=== PATIENT | female | born 1970 | race American Indian/Alaskan Native ===

== ENCOUNTER 2019-03-18 12:08 | Emergency (ER) | payer SELFPAY ==
[2019-03-18 12:16] VITALS: BP 162/81
--- NOTE | 2019-03-18 12:19 | Event Note ---
ED Screening Note Date of service: 03/18/19 Time: 12:18 ED Screening Note: 48 y o female presents with knee pain s/p fall last night This initial assessment/diagnostic orders/clinical plan/treatment(s) is/are subject to change based on patients health status, clinical progression and re-assessment by fellow clinical providers in the ED. Further treatment and workup at subsequent clinical providers discretion. Patient/guardian urged not to elope from the ED as their condition may be serious if not clinically assessed and managed. Initial orders include: xr right knee
--- NOTE | 2019-03-18 13:01 | XRay Report ---
RIGHT KNEE 3 VIEWS INDICATION / CLINICAL INFORMATION: knee pain following a fall yesterday. COMPARISON: None available. FINDINGS: No significant skeletal abnormality. Signer Name: Joseph Trevino MD [facility] Signed: 03/18/2019 12:57 PM Workstation Name: [id number]
--- NOTE | 2019-03-18 14:14 | Emergency Department Report ---
ED Lower Extremity HPI - General Chief Complaint: Fall Stated Complaint: RT LEG SWOLLEN/PRESSURE/PAIN Time Seen by Provider: 03/18/19 12:17 Source: patient, family Mode of arrival: Ambulatory Limitations: Physical Limitation - History of Present Illness Initial Comments: Since a 48-year-old -[place]ammar[place] male who presents to the emergency room with right knee pain status post fall yesterday. Patient states she slipped on water while at work yesterday landing on her buttock. Patient states when she failed her right knee hyperflexed. She reports pain is worse with weightbearing and movement. She reports some swelling. Patient states she is ambulating with her sisters walker for assistance. Patient denies hitting her head, loss of consciousness, bruising, paresthesia, weakness, numbness or tingling. MD Complaint: knee injury (right) Onset/Timin -: days(s) Injury: Knee: Right - Related Data Previous Rx's Medication Instructions Recorded Last Taken Type traMADol [Ultram 50 MG tab] 50 mg PO Q6HR PRN #12 tablet 03/18/19 Unknown Rx ED Review of Systems ROS: Stated complaint: RT LEG SWOLLEN/PRESSURE/PAIN Other details as noted in HPI Constitutional: denies: chills, fever Respiratory: denies: cough, shortness of breath, wheezing Cardiovascular: denies: chest pain, palpitations Gastrointestinal: denies: abdominal pain, nausea, diarrhea Musculoskeletal: arthralgia (right knee pain). denies: back pain, joint swel ling Skin: denies: rash, lesions Neurological: denies: headache, weakness, paresthesias Psychiatric: denies: anxiety, depression ED Past Medical Hx - Past Medical History Previous Medical History?: Yes Hx Diabetes: Yes Hx Asthma: Yes Additional medical history: Anemia - Surgical History Past Surgical History?: No - Social History Smoking Status: Never Smoker Substance Use Type: Alcohol, Prescribed - Medications Home Medications: Home Medications Medication Instructions Recorded Confirmed Last Taken Type traMADol [Ultram 50 MG tab] 50 mg PO Q6HR PRN #12 tablet 03/18/19 Unknown Rx ED Physical Exam - General Limitations: Physical Limitation General appearance: alert, in no apparent distress, obese (morbidly) - Respiratory Respiratory exam: Present: normal lung sounds bilaterally. Absent: respiratory distress - Cardiovascular Cardiovascular Exam: Present: regular rate, normal rhythm. Absent: systolic murmur, diastolic murmur, rubs, gallop - GI/Abdominal GI/Abdominal exam: Present: soft, normal bowel sounds - Expanded Lower Extremity Exam Right Hip exam: Present: normal inspection, full ROM Upper Leg exam: Present: normal inspection, full ROM Knee exam: Present: full ROM, tenderness (lateral patella), crepidus, pain w/ pronation/supination, full knee extension. Absent: swelling, abrasion, lac eration, ecchymosis, deformity, dislocation, erythema, effusion, posterior draw sign, pain/laxity with valgus, pain/laxity with varus Lower Leg exam: Present: normal inspection, full ROM Ankle exam: Present: normal inspection, full ROM Foot/Toe exam: Present: normal inspection, full ROM Neuro vascular tendon exam: Present: no vascular compromise Gait: Positive: observed and limited by pain - Neurological Exam Neurological exam: Present: alert, oriented X3 - Psychiatric Psychiatric exam: Present: normal affect, normal mood - Skin Skin exam: Present: warm, dry, intact, normal color. Absent: rash ED Course Vital Signs 03/18/19 12:10 Temperature 98.5 F Pulse Rate 60 Respiratory 18 Rate Blood Pressure 162/81 O2 Sat by Pulse 98 Oximetry ED Lower Extremity MDM - Radiology Data Radiology results: report reviewed RIGHT KNEE 3 VIEWS INDICATION / CLINICAL INFORMATION: knee pain following a fall yesterday. COMPARISON: None available. FINDINGS: No significant skeletal abnormality. - Medical Decision Making Patient was examined by me. Patient is nontoxic appearing and stable. Vitals are normal. Obtained x-ray of right knee with no acute radiographic findings. Given analgesics while in the ER. There is pain with ROM, negative Oziel and drawer test. A knee immobilizer applied to right. Crutches given with education. Referral to orthopedics for follow-up. Instructed to avoid weightbearing right lower extremity until follow-up with orthopedic. Start tramadol for pain. Follow up with PCP or return to the ER with worsening symptoms. Patient discharged home in stable condition. Critical care attestation.: If time is entered above; I have spent that time in minutes in the direct care of this critically ill patient, excluding procedure time. ED Disposition Clinical Impression: Pain in right knee Qualifiers: Chronicity: acute Qualified Code(s): M25.561 - Pain in right knee Knee injury Qualifiers: Encounter type: initial encounter Laterality: right Qualified Code(s): S89.91XA - Unspecified injury of right lower leg, initial encounter Fall Qualifiers: Encounter type: initial encounter Qualified Code(s): W19.XXXA - Unspecified fall, initial encounter Disposition: TO HOME OR SELFCARE Is pt being admited?: No Does the pt Need Aspirin: No Condition: Stable Instructions: Arthralgia (ED), Knee Pain (ED) Additional Instructions: Rest Use ice or heat on affected area for 20 minutes and off for 2 hours. Take pain medication as needed for pain. Follow-up with orthopedics from the referral list bellow. Follow up with Primary Care Provider in 2-3 days. Prescriptions: traMADol [Ultram 50 MG tab] 50 mg PO Q6HR PRN #12 tablet PRN Reason: Pain Referrals: CRISTIANE JOHNSON MD [Staff Physician] - 3-5 Days [facility] [Provider Group] - 3-5 Days [facility] [Provider Group] - 3-5 Days [facility] [Provider Group] - 3-5 Days Forms: Work/School Release Form(ED) Time of Disposition: 14:26
[2019-03-18] MEDS ORDERED: TORADOL IM ONE (14:20)
== END 2019-03-18 15:48 | disposition home or self-care (01) ==
LOC: ED 12:08
DX: S89.91XA Unspecified injury of right lower leg, initial encounter (principal); E11.9 Type 2 diabetes mellitus without complications; J45.909 Unspecified asthma, uncomplicated; Z79.899 Other long term (current) drug therapy; W01.198A Fall on same level from slipping, tripping and stumbling with subsequent striking against other object, initial encounter; Y93.89 Activity, other specified; Y92.89 Other specified places as the place of occurrence of the external cause; Y99.8 Other external cause status
CPT/HCPCS: 29505; 73562; 96372; 99283; J1885

== ENCOUNTER 2019-03-24 20:13 | Emergency (ER) | payer SELFPAY ==
[2019-03-24] MEDS ORDERED: IBUPROFEN PO ONE ×2 (22:48→22:50)
[2019-03-24] MEDS ORDERED: ULTRAM PO ONE (22:48)
[2019-03-24] MEDS ORDERED: ULTRAM ONE (22:50)
[2019-03-25] MEDS ORDERED: DECADRON IV ONE (00:18)
[2019-03-25] MEDS ORDERED: TORADOL IM ONE (00:18)
--- NOTE | 2019-03-25 01:18 | Emergency Department Report ---
ED Lower Extremity HPI - General Chief Complaint: Fall Stated Complaint: PAIN AND SWELLING BOTH LEGS AND FEET Time Seen by Provider: 03/25/19 00:14 Source: patient Mode of arrival: Ambulatory Limitations: No Limitations - History of Present Illness Initial Comments: Is a 48 and -[place] female who presents bilateral pain as well as patient fell 1 week ago treated in this ED for same currently taking NSAIDs when necessary pain patient states she's been unable to see her next week states pain continues Swelling continues and swelling now 4/10 pain is temporarily relieved with NSAIDs was returned there is no pleural effusion. 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 denies: numbness, tingling - Related Data Previous Rx's Medication Instructions Recorded Last Taken Type traMADol [Ultram 50 MG tab] 50 mg PO Q6HR PRN #12 tablet 03/18/[address] (Nf) 50 mg PO TID PRN #30 tab 03/25/19 Unknown Rx methOCARBAMOL [Robaxin TAB] 500 mg PO TID PRN #30 tab 03/25/19 Unknown Rx predniSONE [Deltasone] 40 mg PO 10 #5 tablet 03/25/19 Unknown Rx Allergies Allergy/AdvReac Type Severity Reaction Status Date / Time No Known Allergies Allergy Unverified 03/18/19 14:27 ED Review of Systems ROS: Stated complaint: PAIN AND SWELLING BOTH LEGS AND FEET Other details as noted in HPI Constitutional: denies: chills, fever Eyes: denies: eye pain, eye discharge, vision change ENT: denies: ear pain, throat pain Respiratory: denies: cough, shortness of breath, wheezing Cardiovascular: denies: chest pain, palpitations Endocrine: no symptoms reported Gastrointestinal: denies: abdominal pain, nausea, vomiting, diarrhea Genitourinary: denies: urgency, dysuria, discharge Musculoskeletal: joint swelling, arthralgia, myalgia Skin: denies: rash, lesions Neurological: denies: headache, weakness, paresthesias Psychiatric: denies: anxiety, depression Hematological/Lymphatic: denies: easy bleeding, easy bruising ED Past Medical Hx - Past Medical History Previous Medical History?: Yes Hx Hypertension: No Hx CVA: No Hx Heart Attack/AMI: No Hx Congestive Heart Failure: No Hx Diabetes: Yes Hx Deep Vein Thrombosis: No Hx Pulmonary Embolism: No Hx GERD: No Hx Liver Disease: No Hx Renal Disease: No Hx of Cancer: No Hx Sickle Cell Disease: No Hx Arthritis: No Hx Headaches / Migraines: No Hx Seizures: No Hx Kidney Stones: No Hx Psychiatric Treatment: No Hx Asthma: Yes Hx COPD: No Hx Tuberculosis: No Hx Dementia: No Hx HIV: No Additional medical history: Anemia - Surgical History Past Surgical History?: No Hx Coronary Stent: No Hx Open Heart Surgery: No Hx Pacemaker: No Hx Internal Defibrillator: No Hx Cholecystectomy: No Hx Appendectomy: No Hx Breast Surgery: No - Social History Smoking Status: Never Smoker Substance Use Type: None - Medications Home Medications: Home Medications Medication Instructions Recorded Confirmed Last Taken Type traMADol [Ultram 50 MG tab] 50 mg PO Q6HR PRN #12 tablet 03/18/[address] (Nf) 50 mg PO TID PRN #30 tab 03/25/19 Unknown Rx methOCARBAMOL [Robaxin TAB] 500 mg PO TID PRN #30 tab 03/25/19 Unknown Rx predniSONE [Deltasone] 40 mg PO 10 #5 tablet 03/25/19 Unknown Rx ED Physical Exam - General Limitations: No Limitations General appearance: alert, in no apparent distress - Head Head exam: Present: atraumatic, normocephalic, normal inspection - Eye Eye exam: Present: normal appearance, PERRL, EOMI Pupils: Present: normal accommodation - ENT ENT exam: Present: normal exam, mucous membranes moist, TM's normal bilaterally, normal external ear exam - Neck Neck exam: Present: normal inspection, tenderness, full ROM. Absent: lymphadenopathy, thyromegaly - Respiratory Respiratory exam: Present: normal lung sounds bilaterally. Absent: respiratory distress, wheezes, stridor, chest wall tenderness - Cardiovascular Cardiovascular Exam: Present: regular rate, normal heart sounds - GI/Abdominal GI/Abdominal exam: Present: soft, normal bowel sounds. Absent: distended, tenderness, guarding, rebound, bruit, hernia - Rectal Rectal exam: Present: deferred - Extremities Exam Extremities exam: Present: normal inspection, full ROM, tenderness, normal capillary refill, pedal edema, joint swelling. Absent: calf tenderness - Back Exam Back exam: Present: normal inspection, full ROM, CVA tenderness (R). Absent: tenderness, CVA tenderness (L), muscle spasm, paraspinal tenderness, vertebral tenderness, rash noted - Neurological Exam Neurological exam: Present: alert, oriented X3, CN II-XII intact (I) - Psychiatric Psychiatric exam: Present: normal affect, normal mood - Skin Skin exam: Present: warm (fall), dry, intact, normal color. Absent: rash ED Course Vital Signs 03/24/19 03/24/19 03/24/19 20:16 20:31 20:35 Temperature 98.4 F 98.4 F Pulse Rate 67 67 64 Respiratory 18 18 20 Rate Blood Pressure 200/89 196/96 Blood Pressure 198/77 [Left] O2 Sat by Pulse 98 98 100 Oximetry ED Lower Extremity MDM - Medical Decision Making pain improved, plan prednisone, diclofenac, continue ana wrap, DVT doppler in am, follow up with Ortho in 1-2 days as scheduled. pt verbalized agreement and understanding of discharge plan. Critical care attestation.: If time is entered above; I have spent that time in minutes in the direct care of this critically ill patient, excluding procedure time. ED Disposition Clinical Impression: Knee pain, bilateral Qualifiers: Chronicity: acute Qualified Code(s): M25.561 - Pain in right knee; M25.562 - Pain in left knee Right knee sprain Qualifiers: Encounter type: initial encounter Involved ligament of knee: other ligament Qualified Code(s): S83.8X1A - Sprain of other specified parts of right knee, initial encounter Disposition: TO HOME OR SELFCARE Is pt being admited?: No Does the pt Need Aspirin: No Condition: Stable Instructions: Knee Sprain (ED), Knee Exercises (GEN) Prescriptions: predniSONE [Deltasone] 40 mg PO 10 #[address] (Nf) 50 mg PO TID PRN #30 tab PRN Reason: Pain , Severe (7-10) methOCARBAMOL [Robaxin TAB] 500 mg PO TID PRN #30 tab PRN Reason: Muscle Spasm Referrals: CRISTIANE JOHNSON MD [Staff Physician] - NAE Forms: Work/School Release Form(ED) Time of Disposition: 01:42
[2019-03-25 02:02] VITALS: BP 177/86
== END 2019-03-25 01:59 | disposition home or self-care (01) ==
LOC: ED 20:13
DX: S83.8X1A Sprain of other specified parts of right knee, initial encounter (principal); E11.9 Type 2 diabetes mellitus without complications; J45.909 Unspecified asthma, uncomplicated; Z86.2 Personal history of diseases of the blood and blood-forming organs and certain disorders involving the immune mechanism; X58.XXXA Exposure to other specified factors, initial encounter; Y93.89 Activity, other specified; Y92.89 Other specified places as the place of occurrence of the external cause; Y99.8 Other external cause status
CPT/HCPCS: 96372; 96374; 99283; J1100; J1885